=== PATIENT | male | born 1990 | race African-American/Black ===

== ENCOUNTER 2022-01-29 16:39 | Inpatient (IN) | payer OTHER ==
[2022-01-29 20:28] VITALS: BMI 21.2
[2022-01-29] MEDS ORDERED: NICOTINE 10 MG CARTRIDGE (INHALER) IH PRN (21:31)
[2022-01-29] MEDS ORDERED: MAGNESIUM CITRATE 300 ML BOTTLE PO PRN (21:31)
[2022-01-29] MEDS ORDERED: ACETAMINOPHEN 325 MG TABLET (FP) PO PRN (21:31)
[2022-01-29] MEDS ORDERED: guaiFENesin 200 MG/10 ML 10 ML UNIT-DOSE CUPS PO PRN (21:31)
[2022-01-29] MEDS ORDERED: P-EPHED 60MG/TRIPROLIDI 2.5MG TABLET PO PRN (21:31)
[2022-01-29] MEDS ORDERED: LOPERAMIDE HCL 2 MG CAPSULE PO PRN (21:31)
[2022-01-29] MEDS ORDERED: MAGNESIUM HYDROX 2400MG/30ML ORAL SUSPENSION 30 ML CUP PO PRN (21:31)
[2022-01-29] MEDS: IBUPROFEN 400 MG TABLET (FP) PO PRN (22:18)
[2022-01-30] MEDS ORDERED: TUBERCULIN PPD 5 TU/0.1ML VIAL ID ONE ×2 (07:40→07:49)
[2022-01-30] MEDS: PRENATAL VITAMINS W/ FOLIC ACID TABLET (FP) PO SCH (10:28)
[2022-01-30] MEDS: NICOTINE 14 MG/24 HOURS TOPICAL PATCH TD SCH (10:29)
[2022-01-30 12:29] LABS: URINE APPEARANCE CLEAR; URINE BILIRUBIN NEGATIVE (NEGATIVE); URINE COLOR YELLOW; URINE GLUCOSE (UA) NEGATIVE (NEGATIVE); URINE KETONE TRACE (NEGATIVE); URINE LEUK ESTERASE NEGATIVE (NEGATIVE); URINE NITRITE NEGATIVE (NEGATIVE); URINE PROTEIN TRACE (NEGATIVE); URINE UROBILINOGEN 0.2 mg/dL (0.2-1.0)
[2022-01-30 12:42] LABS: HEMOGLOBIN 12.4 GM/dL (11.7-16.9); MCH 27.1 pg (25.7-33.7); MCHC 31.9 g/dl (32.0-35.9); MEAN CELL VOLUME 85.1 fl (80-96); MEAN PLT VOLUME 8.1 fl (7.5-11.1); PLATELET COUNT 341 10^3/uL (134-434); RBC 4.58 M/mm3 (4.00-5.60); RDW 15.7 % (11.9-15.9); WHITE BLOOD COUNT 3.8 K/mm3 (4.0-10.0)
[2022-01-30 12:52] LABS: ALBUMIN 3.2 g/dl (3.4-5.0); BLOOD UREA NITROGEN 25.5 mg/dL (7-18); CALCIUM 9.1 mg/dL (8.5-10.1)
[2022-01-30 12:55] LABS: CREATININE 0.9 mg/dL (0.55-1.3)
[2022-01-30 12:59] LABS: BILIRUBIN,TOTAL 0.2 mg/dL (0.2-1)
[2022-01-30 13:02] LABS: TOT PROT 6.7 g/dl (6.4-8.2)
[2022-01-30 13:32] LABS: SYPHILIS W/ RPR CONF REACTIVE (NONREACTIVE)
[2022-01-30] MEDS: THIAMINE HCL 100 MG TABLET (FP) PO SCH ×2 (16:54→21:09)
[2022-01-30] MEDS: MELATONIN 5 MG TABLETS PO SCH ×2 (16:54→21:09)
[2022-01-31] MEDS: MAG HYDROX/AL HYDROX/SIMETH 30 ML UNIT-DOSE CUP PO PRN ×3 (02:40→17:15)
[2022-01-31] MEDS: IBUPROFEN 400 MG TABLET (FP) PO PRN ×3 (04:24→16:35)
[2022-01-31] MEDS: hydrOXYzine PAMOATE 25 MG CAPSULE (FP) PO PRN ×2 (10:02→16:35)
[2022-01-31] MEDS: PRENATAL VITAMINS W/ FOLIC ACID TABLET (FP) PO SCH (10:02)
[2022-01-31] MEDS: NICOTINE 14 MG/24 HOURS TOPICAL PATCH TD SCH (10:02)
[2022-01-31] MEDS ORDERED: NICOTINE POLACRILEX 2 MG GUM BUC PRN (10:23)
[2022-01-31] MEDS ORDERED: PNEUMOC 20-VAL CONJ-DIP CRM/PF 0.5 ML SYRINGE IM ONE (10:35)
[2022-01-31] MEDS ORDERED: BICTEGRAV/EMTRICIT/TENOFOV (BIKTARVY) 50-200-25 MG TABLET PO SCH (16:00)
[2022-01-31] MEDS: THIAMINE HCL 100 MG TABLET (FP) PO SCH (23:36)
[2022-01-31] MEDS: MELATONIN 5 MG TABLETS PO SCH (23:36)
[2022-02-01 06:49] VITALS: BP 125/75; PULSE 85; RESP 18; TEMP 98.7
[2022-02-01] MEDS ORDERED: ONDANSETRON 4 MG TABLET PO PRN (09:06)
[2022-02-01] MEDS: hydrOXYzine PAMOATE 25 MG CAPSULE (FP) PO PRN (09:07)
[2022-02-01] MEDS: MAG HYDROX/AL HYDROX/SIMETH 30 ML UNIT-DOSE CUP PO PRN (09:07)
[2022-02-01] MEDS ORDERED: ONDANSETRON *ODT* 4 MG TABLET SL PRN (09:38)
[2022-02-01] MEDS ORDERED: BISMUTH SUBSALICYLATE 262 MG/15 ML BTL PO ONE (09:45)
== END 2022-02-01 09:53 | disposition home or self-care (01) | DRG 772 ==
LOC: YASAS 16:39 → Y3W 20:58
PROVIDERS: ADMIT Allergy & Immunology; ATTEND Psychiatry & Neurology Pain Medicine
PROC: HZ42ZZZ Group Counseling for Substance Abuse Treatment, Cognitive-Behavioral (ICD-10-PCS; principal; 2022-01-29)
DX: F15.20 Other stimulant dependence, uncomplicated (principal); F17.210 Nicotine dependence, cigarettes, uncomplicated; F19.24 Other psychoactive substance dependence with psychoactive substance-induced mood disorder; Z21 Asymptomatic human immunodeficiency virus [HIV] infection status; Z28.311 Partially vaccinated for COVID-19; Z86.19 Personal history of other infectious and parasitic diseases
CPT/HCPCS: 36415; 80053; 81003; 85027; 86593; 86780; 86803; 93005; 93010; C9803-CS; U0003; U0005

== ENCOUNTER 2023-02-10 09:48 | Inpatient (IN) | payer OTHER ==
[2023-02-10 10:06] VITALS: BMI 25.1
[2023-02-10] MEDS ORDERED: BENZONATATE 200 MG CAPSULE PO PRN (11:27)
[2023-02-10] MEDS ORDERED: NALOXONE HCL 0.4 MG/ML VIAL IM PRN (11:27)
[2023-02-10] MEDS ORDERED: hydrOXYzine PAMOATE 25 MG CAPSULE (FP) PO PRN (11:27)
[2023-02-10] MEDS ORDERED: POLYETHYLENE GLYCOL (HEALTHYLAX) 3350 17 GM PACKET PO PRN (11:27)
[2023-02-10] MEDS ORDERED: guaiFENesin 600 MG TABLET.ER (FP) PO PRN (11:27)
[2023-02-10] MEDS ORDERED: MAGNESIUM HYDROX 2400MG/30ML ORAL SUSPENSION 30 ML CUP PO PRN (11:27)
[2023-02-10] MEDS ORDERED: NALOXONE HCL (KLOXXADO) 8 MG SPRAY NS PRN (11:27)
[2023-02-10] MEDS ORDERED: ACETAMINOPHEN 325 MG TABLET (FP) PO PRN (11:27)
[2023-02-10] MEDS ORDERED: AMMONIUM LACTATE 12% LOTION 225 GM BOTTLE TP PRN (11:27)
[2023-02-10] MEDS ORDERED: LOPERAMIDE HCL 2 MG CAPSULE PO PRN (11:27)
[2023-02-10] MEDS ORDERED: COLLOIDAL OATMEAL 1 BAR EACH TP PRN (11:27)
[2023-02-10] MEDS ORDERED: MAG HYDROX/AL HYDROX/SIMETH 30 ML UNIT-DOSE CUP PO PRN (11:27)
[2023-02-10] MEDS: PRENATAL VITAMINS W/ FOLIC ACID TABLET (FP) PO SCH (14:02)
[2023-02-10] MEDS: NICOTINE 14 MG/24 HOURS TOPICAL PATCH TD SCH (14:03)
[2023-02-10 16:41] LABS: HEMATOCRIT 39.1 % (35.4-49); MCH 28.1 pg (25.7-33.7); MCHC 33.3 g/dl (32.0-35.9); MEAN CELL VOLUME 84.4 fl (80-96); MEAN PLT VOLUME 8.4 fl (7.5-11.1); PLATELET COUNT 360 10^3/uL (134-434); RBC 4.63 M/mm3 (4.00-5.60); RDW 14.4 % (11.9-15.9)
[2023-02-10 16:56] LABS: POTASSIUM 4.8 mmol/L (3.5-5.1)
[2023-02-10 16:58] LABS: CALCIUM 8.8 mg/dL (8.5-10.1)
[2023-02-10 16:59] LABS: ALBUMIN 3.6 g/dl (3.4-5.0); BLOOD UREA NITROGEN 22.4 mg/dL (7-18)
[2023-02-10 17:02] LABS: CREATININE 1.1 mg/dL (0.55-1.3)
[2023-02-10 17:03] LABS: BILIRUBIN,TOTAL 0.3 mg/dL (0.2-1)
[2023-02-10 17:04] LABS: TOT PROT 7.4 g/dl (6.4-8.2)
[2023-02-10 18:19] LABS: SYPHILIS W/ RPR CONF REACTIVE (NONREACTIVE)
[2023-02-10] MEDS: MELATONIN 5 MG TABLETS PO SCH (21:37)
[2023-02-10] MEDS: THIAMINE HCL 100 MG TABLET (FP) PO SCH (21:37)
[2023-02-11] MEDS: BICTEGRAV/EMTRICIT/TENOFOV (BIKTARVY) 50-200-25 MG TABLET PO SCH (08:43)
[2023-02-11] MEDS ORDERED: OLANZapine 5 MG TABLET PO ONE (09:01)
[2023-02-11] MEDS: NICOTINE 14 MG/24 HOURS TOPICAL PATCH TD SCH (09:10)
[2023-02-11] MEDS ORDERED: BIKTARVY PO SCH (10:00)
[2023-02-11] MEDS: PRENATAL VITAMINS W/ FOLIC ACID TABLET (FP) PO SCH (10:04)
[2023-02-11 10:55] LABS: PH,URINE 6.5 (5.0-8.0); URINE APPEARANCE CLEAR; URINE BILIRUBIN NEGATIVE (NEGATIVE); URINE COLOR YELLOW; URINE GLUCOSE (UA) NEGATIVE (NEGATIVE); URINE KETONE NEGATIVE (NEGATIVE); URINE LEUK ESTERASE NEGATIVE (NEGATIVE); URINE NITRITE NEGATIVE (NEGATIVE); URINE PROTEIN NEGATIVE (NEGATIVE); URINE UROBILINOGEN 0.2 mg/dL (0.2-1.0)
[2023-02-11] MEDS: hydrOXYzine PAMOATE 50 MG CAPSULE (FP) PO PRN ×2 (14:01→21:26)
[2023-02-11] MEDS: MELATONIN 5 MG TABLETS PO SCH (21:25)
[2023-02-11] MEDS: OLANZapine 5 MG TABLET PO SCH (21:25)
[2023-02-11] MEDS: THIAMINE HCL 100 MG TABLET (FP) PO SCH (21:25)
[2023-02-12] MEDS: BICTEGRAV/EMTRICIT/TENOFOV (BIKTARVY) 50-200-25 MG TABLET PO SCH (07:10)
[2023-02-12] MEDS: OLANZapine 5 MG TABLET PO SCH (10:11)
[2023-02-12] MEDS: PRENATAL VITAMINS W/ FOLIC ACID TABLET (FP) PO SCH (10:11)
[2023-02-12] MEDS: NICOTINE 14 MG/24 HOURS TOPICAL PATCH TD SCH (10:11)
[2023-02-12] MEDS: hydrOXYzine PAMOATE 50 MG CAPSULE (FP) PO PRN ×2 (13:29→21:01)
[2023-02-12] MEDS: IBUPROFEN 400 MG TABLET (FP) PO PRN (16:28)
[2023-02-12] MEDS: NICOTINE POLACRILEX 4 MG GUM BUC PRN (17:41)
[2023-02-12] MEDS: MELATONIN 5 MG TABLETS PO SCH (21:01)
[2023-02-12] MEDS: THIAMINE HCL 100 MG TABLET (FP) PO SCH (21:01)
[2023-02-12] MEDS: OLANZapine 10 MG TABLET PO SCH (21:01)
[2023-02-12] MEDS: BENZOCAINE/MENTHOL (CHLORASEPTIC ) LOZENGE MM PRN (21:02)
[2023-02-12] MEDS: IBUPROFEN 600 MG TABLET (FP) PO PRN (23:43)
[2023-02-13] MEDS: BENZOCAINE/MENTHOL (CHLORASEPTIC ) LOZENGE MM PRN (05:56)
[2023-02-13] MEDS: BICTEGRAV/EMTRICIT/TENOFOV (BIKTARVY) 50-200-25 MG TABLET PO SCH (07:03)
[2023-02-13] MEDS: OLANZapine 5 MG TABLET PO SCH (10:17)
[2023-02-13] MEDS: PRENATAL VITAMINS W/ FOLIC ACID TABLET (FP) PO SCH (10:17)
[2023-02-13] MEDS: NICOTINE 14 MG/24 HOURS TOPICAL PATCH TD SCH (10:18)
[2023-02-13] MEDS: IBUPROFEN 400 MG TABLET (FP) PO PRN (10:48)
[2023-02-13] MEDS: MELATONIN 5 MG TABLETS PO SCH (21:26)
[2023-02-13] MEDS: THIAMINE HCL 100 MG TABLET (FP) PO SCH (21:26)
[2023-02-13] MEDS: cloNIDine HCL 0.1 MG TABLET PO PRN (21:27)
[2023-02-13] MEDS: OLANZapine 10 MG TABLET PO SCH (21:27)
[2023-02-14] MEDS: IBUPROFEN 600 MG TABLET (FP) PO PRN (06:39)
[2023-02-14] MEDS: cloNIDine HCL 0.1 MG TABLET PO PRN (06:39)
[2023-02-14] MEDS: BICTEGRAV/EMTRICIT/TENOFOV (BIKTARVY) 50-200-25 MG TABLET PO SCH (07:03)
[2023-02-14] MEDS: BENZOCAINE/MENTHOL (CHLORASEPTIC ) LOZENGE MM PRN ×2 (10:35→18:25)
[2023-02-14] MEDS: PRENATAL VITAMINS W/ FOLIC ACID TABLET (FP) PO SCH (10:35)
[2023-02-14] MEDS: NICOTINE 14 MG/24 HOURS TOPICAL PATCH TD SCH (10:35)
[2023-02-14] MEDS: hydrOXYzine PAMOATE 50 MG CAPSULE (FP) PO PRN (10:35)
[2023-02-14] MEDS: OLANZapine 5 MG TABLET PO SCH (10:35)
[2023-02-14] MEDS: THIAMINE HCL 100 MG TABLET (FP) PO SCH (21:03)
[2023-02-14] MEDS: OLANZapine 10 MG TABLET PO SCH (21:03)
[2023-02-14] MEDS: MELATONIN 5 MG TABLETS PO SCH (21:03)
[2023-02-14] MEDS: diphenhydrAMINE HCL 25 MG CAPSULE (FP) PO PRN (21:04)
[2023-02-15] MEDS: hydrOXYzine PAMOATE 50 MG CAPSULE (FP) PO PRN ×2 (00:26→07:02)
[2023-02-15] MEDS: IBUPROFEN 600 MG TABLET (FP) PO PRN ×2 (00:26→07:01)
[2023-02-15] MEDS: BICTEGRAV/EMTRICIT/TENOFOV (BIKTARVY) 50-200-25 MG TABLET PO SCH (07:02)
[2023-02-15] MEDS: NICOTINE 14 MG/24 HOURS TOPICAL PATCH TD SCH (09:43)
[2023-02-15] MEDS: OLANZapine 5 MG TABLET PO SCH (09:43)
[2023-02-15] MEDS: PRENATAL VITAMINS W/ FOLIC ACID TABLET (FP) PO SCH (09:43)
[2023-02-15] MEDS: BENZOCAINE/MENTHOL (CHLORASEPTIC ) LOZENGE MM PRN (13:01)
[2023-02-15] MEDS: OLANZapine 10 MG TABLET PO SCH (21:31)
[2023-02-15] MEDS: THIAMINE HCL 100 MG TABLET (FP) PO SCH (21:31)
[2023-02-15] MEDS: diphenhydrAMINE HCL 25 MG CAPSULE (FP) PO PRN (21:31)
[2023-02-15] MEDS: MELATONIN 5 MG TABLETS PO SCH (21:31)
[2023-02-16] MEDS: IBUPROFEN 400 MG TABLET (FP) PO PRN (06:36)
[2023-02-16] MEDS: cloNIDine HCL 0.1 MG TABLET PO PRN (06:37)
[2023-02-16] MEDS: BENZOCAINE/MENTHOL (CHLORASEPTIC ) LOZENGE MM PRN (06:38)
[2023-02-16] MEDS: BICTEGRAV/EMTRICIT/TENOFOV (BIKTARVY) 50-200-25 MG TABLET PO SCH (07:16)
[2023-02-16 08:57] VITALS: RESP 18
[2023-02-16] MEDS: PRENATAL VITAMINS W/ FOLIC ACID TABLET (FP) PO SCH (09:31)
[2023-02-16] MEDS: OLANZapine 5 MG TABLET PO SCH (09:31)
[2023-02-16] MEDS: NICOTINE 14 MG/24 HOURS TOPICAL PATCH TD SCH (09:34)
[2023-02-16] MEDS: IBUPROFEN 600 MG TABLET (FP) PO PRN (18:20)
[2023-02-16] MEDS: NICOTINE POLACRILEX 4 MG GUM BUC PRN (18:23)
[2023-02-16] MEDS: MELATONIN 5 MG TABLETS PO SCH (21:36)
[2023-02-16] MEDS: THIAMINE HCL 100 MG TABLET (FP) PO SCH (21:36)
[2023-02-16] MEDS: hydrOXYzine PAMOATE 50 MG CAPSULE (FP) PO PRN (21:37)
[2023-02-16] MEDS: OLANZapine 10 MG TABLET PO SCH (21:37)
[2023-02-17] MEDS: IBUPROFEN 600 MG TABLET (FP) PO PRN ×3 (00:36→21:35)
[2023-02-17] MEDS: diphenhydrAMINE HCL 25 MG CAPSULE (FP) PO PRN ×2 (00:36→21:35)
[2023-02-17] MEDS: BICTEGRAV/EMTRICIT/TENOFOV (BIKTARVY) 50-200-25 MG TABLET PO SCH (07:00)
[2023-02-17] MEDS: OLANZapine 5 MG TABLET PO SCH (10:17)
[2023-02-17] MEDS: PRENATAL VITAMINS W/ FOLIC ACID TABLET (FP) PO SCH (10:17)
[2023-02-17] MEDS: NICOTINE 14 MG/24 HOURS TOPICAL PATCH TD SCH (10:22)
[2023-02-17] MEDS: NICOTINE POLACRILEX 4 MG GUM BUC PRN (18:19)
[2023-02-17] MEDS: OLANZapine 10 MG TABLET PO SCH (21:34)
[2023-02-17] MEDS: THIAMINE HCL 100 MG TABLET (FP) PO SCH (21:35)
[2023-02-17] MEDS: MELATONIN 5 MG TABLETS PO SCH (21:35)
[2023-02-18] MEDS: IBUPROFEN 400 MG TABLET (FP) PO PRN (06:25)
[2023-02-18] MEDS: hydrOXYzine PAMOATE 50 MG CAPSULE (FP) PO PRN (06:26)
[2023-02-18] MEDS: BICTEGRAV/EMTRICIT/TENOFOV (BIKTARVY) 50-200-25 MG TABLET PO SCH (07:08)
[2023-02-18] MEDS: NICOTINE 14 MG/24 HOURS TOPICAL PATCH TD SCH (09:53)
[2023-02-18] MEDS: OLANZapine 5 MG TABLET PO SCH (09:53)
[2023-02-18] MEDS: PRENATAL VITAMINS W/ FOLIC ACID TABLET (FP) PO SCH (09:53)
[2023-02-18] MEDS: BENZOCAINE/MENTHOL (CHLORASEPTIC ) LOZENGE MM PRN (10:01)
[2023-02-18] MEDS: NICOTINE POLACRILEX 4 MG GUM BUC PRN (18:55)
[2023-02-18] MEDS: MELATONIN 5 MG TABLETS PO SCH (21:18)
[2023-02-18] MEDS: OLANZapine 10 MG TABLET PO SCH (21:18)
[2023-02-18] MEDS: diphenhydrAMINE HCL 25 MG CAPSULE (FP) PO PRN (21:18)
[2023-02-18] MEDS: THIAMINE HCL 100 MG TABLET (FP) PO SCH (21:18)
[2023-02-18] MEDS: IBUPROFEN 600 MG TABLET (FP) PO PRN (23:20)
[2023-02-19] MEDS: IBUPROFEN 400 MG TABLET (FP) PO PRN (06:20)
[2023-02-19] MEDS: BICTEGRAV/EMTRICIT/TENOFOV (BIKTARVY) 50-200-25 MG TABLET PO SCH (07:09)
[2023-02-19] MEDS: NICOTINE 14 MG/24 HOURS TOPICAL PATCH TD SCH (09:44)
[2023-02-19] MEDS: OLANZapine 5 MG TABLET PO SCH (09:45)
[2023-02-19] MEDS: BENZOCAINE/MENTHOL (CHLORASEPTIC ) LOZENGE MM PRN (09:45)
[2023-02-19] MEDS: PRENATAL VITAMINS W/ FOLIC ACID TABLET (FP) PO SCH (09:45)
[2023-02-19 14:41] LABS: HEMATOCRIT 38.1 % (35.4-49); HEMOGLOBIN 12.6 GM/dL (11.7-16.9); MCH 27.5 pg (25.7-33.7); MCHC 33.1 g/dl (32.0-35.9); MEAN CELL VOLUME 83.2 fl (80-96); MEAN PLT VOLUME 8.2 fl (7.5-11.1); PLATELET COUNT 372 10^3/uL (134-434); RBC 4.58 M/mm3 (4.00-5.60); RDW 14.5 % (11.9-15.9); WHITE BLOOD COUNT 4.8 K/mm3 (4.0-10.0)
[2023-02-19 15:09] LABS: ANISOCYTOSIS 0; HELMET CELLS 0; HOWELL-JOLLY BODIES 0; MACROCYTOSIS 0; OVALOCYTE 0; ROULEAU 0; SICKELED CELLS 0; TARGET CELLS 0; TEAR DROP CELLS 0; TOXIC GRANULATION 0
[2023-02-19] MEDS: hydrOXYzine PAMOATE 50 MG CAPSULE (FP) PO PRN (15:38)
[2023-02-19] MEDS: THIAMINE HCL 100 MG TABLET (FP) PO SCH (21:20)
[2023-02-19] MEDS: OLANZapine 10 MG TABLET PO SCH (21:20)
[2023-02-19] MEDS: MELATONIN 5 MG TABLETS PO SCH (21:20)
[2023-02-19] MEDS ORDERED: diphenhydrAMINE HCL 50 MG CAPSULE PO PRN (22:00)
[2023-02-20] MEDS: IBUPROFEN 400 MG TABLET (FP) PO PRN (06:26)
[2023-02-20] MEDS: BICTEGRAV/EMTRICIT/TENOFOV (BIKTARVY) 50-200-25 MG TABLET PO SCH (07:04)
[2023-02-20 09:07] VITALS: BP 100/62; PULSE 96; TEMP 97.5
[2023-02-20] MEDS: PRENATAL VITAMINS W/ FOLIC ACID TABLET (FP) PO SCH (10:46)
[2023-02-20] MEDS: NICOTINE 14 MG/24 HOURS TOPICAL PATCH TD SCH (10:46)
[2023-02-20] MEDS: OLANZapine 5 MG TABLET PO SCH (10:46)
[2023-02-20] MEDS: NICOTINE POLACRILEX 4 MG GUM BUC PRN (13:10)
== END 2023-02-20 15:24 | disposition home or self-care (01) | DRG 772 ==
LOC: YASAS 09:48 → Y3W 19:14
PROVIDERS: ADMIT Allergy & Immunology; ATTEND Psychiatry & Neurology Pain Medicine
PROC: HZ42ZZZ Group Counseling for Substance Abuse Treatment, Cognitive-Behavioral (ICD-10-PCS; principal; 2023-02-10)
DX: F15.20 Other stimulant dependence, uncomplicated (principal); F17.210 Nicotine dependence, cigarettes, uncomplicated; F19.24 Other psychoactive substance dependence with psychoactive substance-induced mood disorder; F20.0 Paranoid schizophrenia; U07.1 COVID-19; B20 Human immunodeficiency virus [HIV] disease; Z79.899 Other long term (current) drug therapy; Z86.59 Personal history of other mental and behavioral disorders; Z59.01 Sheltered homelessness
CPT/HCPCS: 36415; 80053; 81003; 85025; 85027; 86359; 86360; 86593; 86780; 86803; 87635